=== PATIENT | female | born 1985 | race Two or more races ===

== ENCOUNTER 2018-12-20 07:10 | Outpatient (CLI) | payer OTHER ==
[~2018-12-20] VITALS: Ht 162.6 cm; Wt 75.3 kg
[~2018-12-20 07:10] MED LIST: GABAPENTIN300 MG ORAL; METFORMIN HCL500 M1 ORAL; NORGESTIMATE-E1 EAC1 PO
[2018-12-20 08:07] VITALS: BP 123/79
[2018-12-20 08:19] LABS: BASOPHILS % (AUTO) 0.2 % (0.0-2.0); EOSINOPHILS % (AUTO) 1.3 % (0.0-3.0); HEMATOCRIT 38.5 % (37.0-47.0); HEMOGLOBIN 13.4 G/DL (12.0-16.0); LYMPHOCYTES % (AUTO) 29.3 % (20.0-45.0); MEAN CORPUSCULAR VOLUME 88 FL (80-99); NEUTROPHILS % (AUTO) 62.1 % (45.0-75.0); PLATELET COUNT 239 K/UL (150-450); RED BLOOD COUNT 4.37 M/UL (4.20-5.40); WHITE BLOOD COUNT 9.2 K/UL (4.8-10.8)
[2018-12-20 08:31] LABS: INR 0.9 (0.9-1.1)
[2018-12-20] MEDS ORDERED: Bupivacaine 0.5% Inj 30 ml vial INJ ONE (09:41)
[2018-12-20] MEDS ORDERED: Depo-Medrol 80mg Vial ONE (09:41)
[2018-12-20] MEDS ORDERED: Lidocaine 1% MPF 10mg/ml 5ml ONE (09:41)
[2018-12-20] MEDS ORDERED: Isovue-M 300 15ml INJ ONE (09:52)
[2018-12-20] MEDS ORDERED: Isovue-M 300 15ml INJ SCH (09:53)
[2018-12-20 10:20] VITALS: BP 138/99
--- NOTE | 2018-12-20 10:35 | Discharge Instructions ---
Discharge Instructions Discharge Instructions Follow up with: dr. shetty Call MD/Return to Hospital if: pain and/or numbness Diet: regular Resume Normal Activity?: Yes Activity: up ad coleen, as tolerated For Surgical Patients Clean and Dry: surgical site Dressing Care: may change May shower: Yes Contact your physician for: bleeding, pain, tenderness, redness, swelling, yellowish discharge in the op. site, other - numbness For Congestive Heart Failure Reminder Report to your physician any weight gain of 5 pounds or more in one week. Stephanie Shetty MD Dec 20, 2018 10:35
[2018-12-20 10:40] VITALS: BP 133/78
--- NOTE | 2018-12-20 14:52 | Diagnostic Imaging Report ---
INDICATION: Pain, intraoperative TECHNIQUE: Intraoperative imaging Fluoroscopy time: 3.6 seconds Total dose: 0.01138 mGym2 Total number of images: 2 COMPARISON: None FINDINGS: Intraoperative images demonstrate needle contrast injection in the midline of the cervical spine region IMPRESSION: Intraoperative imaging, as described
--- NOTE | 2018-12-20 16:15 | Procedure Note ---
DATE OF PROCEDURE: 12/20/2018 PRE-PROCEDURE DIAGNOSIS: Degenerative disc disease, cervical with radiculopathy. POSTPROCEDURE DIAGNOSIS: Degenerative disk disease, cervical with radiculopathy. PROCEDURE PERFORMED: Cervical epidural steroid injection under fluoroscopy. SURGEON: Stephanie Shetty M.D. PROCEDURE IN DETAIL: The patient was warned of risks. Benefits were discussed. Questions were answered. The patient indicated that she understood and accept the risks including not only those involve the risk of the procedure itself, but also those regarding the use of x-ray contrast agent, radiation, nerve damage, bleeding, and . The patient was transported to the radiology suite and placed in the prone position on the fluoroscopic compatible table. Cervical spine was flexed. Forehead was placed on a padded pillow. Skin was prepped with antiseptic solution at C5-C6 interspace. The spinous processes were located using middle finger and index finger on either side and confirmed with palpation using a rocking motion in a superior and inferior plane. The midline of C5-C6 interspace was identified by palpating the spinous processes above and below using a lateral rocking motion to ensure needle entry was in midline. A syringe with 1% lidocaine methylparaben free with a 25-gauge needle was used to infiltrate the skin at midline and a 3.5 inch 22-gauge Tuohy needle was inserted into the previously anesthetized space. A glass syringe with preservative free normal saline was attached holding firmly to the hub of the epidural needle with the left hand firmly placed against the patient's neck. Constant pressure was applied to the plunger of the syringe, with the right hand. The needle and the syringe were continually advanced in a slow deliberate motion with the left hand. There was a loss of resistance. Gentle aspiration revealed no CSF or heme. There was no paresthesia noted. A syringe containing 1 mL of 0.5% bupivacaine plus 80 mg of Depo-Medrol was instilled in the epidural space after confirmation of location with Isovue M-300 to make an epidurogram. The needle was removed without incident while flushing preservative free normal saline. There is no residual motor or sensory deficit appreciated. The patient tolerated the procedure without incident. The patient was transferred to short stay surgery for monitoring and given instructions for discharge when stable. Radiological technical assistance only was provided. Stephanie Shetty M.D. DR: JACOB JOB#: [id number] CC:
== END 2018-12-20 10:45 | disposition home or self-care (01) ==
LOC: RAD 07:10
DX: M50.10 Cervical disc disorder with radiculopathy, unspecified cervical region (principal)
CPT/HCPCS: 36415; 62321; 81025; 85025; 85610; 85730; J1040; J3490; Q9967

== ENCOUNTER 2019-01-10 07:02 | Day surgery (SDC) | payer OTHER ==
[~2019-01-10] VITALS: Ht 162.6 cm; Wt 74.4 kg
[2019-01-10 07:35] VITALS: BP 138/75
[2019-01-10] MEDS ORDERED: Depo-Medrol 80mg Vial IARTIC SCH (08:00)
[2019-01-10] MEDS ORDERED: Lidocaine 1% MPF 10mg/ml 5ml INJ SCH (08:00)
[2019-01-10] MEDS ORDERED: Isovue-M 300 15ml INJ SCH (08:00)
[2019-01-10] MEDS ORDERED: Bupivacaine 0.5% Inj 30 ml vial INJ SCH (08:00)
[2019-01-10 08:14] LABS: BASOPHILS % (AUTO) 0.3 % (0.0-2.0); EOSINOPHILS % (AUTO) 0.6 % (0.0-3.0); HEMATOCRIT 38.9 % (37.0-47.0); HEMOGLOBIN 13.1 G/DL (12.0-16.0); LYMPHOCYTES % (AUTO) 32.1 % (20.0-45.0); MEAN CORPUSCULAR VOLUME 89 FL (80-99); PLATELET COUNT 267 K/UL (150-450); RED BLOOD COUNT 4.37 M/UL (4.20-5.40); RED CELL DISTRIBUTION WIDTH 12.3 % (11.6-14.8); WHITE BLOOD COUNT 9.8 K/UL (4.8-10.8)
[2019-01-10 08:23] LABS: INR 0.9 (0.9-1.1)
[2019-01-10 08:50] VITALS: BP 131/88
--- NOTE | 2019-01-10 08:56 | Discharge Instructions ---
Discharge Instructions Discharge Instructions Follow up with: dr. shetty Call MD/Return to Hospital if: increased pain, bleeding, weakness, numbness Diet: regular Resume Normal Activity?: Yes Activity: up ad coleen For Surgical Patients Clean and Dry: surgical site Dressing Care: may change May shower: Yes Contact your physician for: bleeding, pain, tenderness, redness, swelling, yellowish discharge in the op. site For Congestive Heart Failure Reminder Report to your physician any weight gain of 5 pounds or more in one week. Stephanie Shetty MD Jan 10, 2019 08:56
--- NOTE | 2019-01-10 14:47 | Diagnostic Imaging Report ---
INDICATION: Pain, intraoperative TECHNIQUE: Intraoperative imaging Fluoroscopy time: 5.4 seconds Total dose: 0.02899 mGym2 Total number of images: 3 COMPARISON: None FINDINGS: Intraoperative imaging demonstrates placement of a needle and contrast injection into what is presumably the epidural space at the lower cervical spine IMPRESSION: Intraoperative imaging, as described
== END 2019-01-10 09:20 | disposition home or self-care (01) ==
LOC: SUR 07:02
DX: M50.10 Cervical disc disorder with radiculopathy, unspecified cervical region (principal); M54.2 Cervicalgia; Z90.89 Acquired absence of other organs; Z79.899 Other long term (current) drug therapy
CPT/HCPCS: 36415; 62321; 81025; 85025; 85610; 85730; J1040; J3490; Q9967